=== PATIENT | female | born 1945 | race Caucasian/White ===

== ENCOUNTER 2022-08-03 12:34 | Outpatient (CLI) | payer MEDICARE, BC, SELFPAY | END 2022-08-03 12:35 | disposition home or self-care (01) | LOC: FRMREF 08-17 08:59 | PROVIDERS: PCP Physician Assistant Medical; Visit Provider Physician Assistant Medical | DX: R30.0 Dysuria (principal); N39.0 Urinary tract infection, site not specified | CPT/HCPCS: 87086; 87186 ==

== ENCOUNTER 2022-08-06 13:14 | Outpatient (CLI) | payer MEDICARE, BC, SELFPAY ==
[2022-08-06 14:17] LABS: Chloride* 103 mmol/L (96-114); Potassium* 4.4 mmol/L (3.6-5.1); Sodium* 139 mmol/L (135-149)
[2022-08-06 14:19] LABS: Carbon Dioxide* 30 mmol/L (20-32); Cholesterol* 169 mg/dL (90-199); Creatinine* 0.8 mg/dL (0.5-1.5); Estimated Glomerular Filt Rate 76 ml/min
[2022-08-06 14:20] LABS: Alanine Aminotransferase* 19 U/L (4-35); Alkaline Phosphatase* 68 U/L (40-150); Aspartate Amino Transferase* 29 U/L (12-35); Bilirubin Total* 0.8 mg/dL (0.1-1.5); Blood Urea Nitrogen* 18 mg/dL (7-30); Calcium* 9.2 mg/dL (8.4-10.6); Glucose* 118 mg/dL (60-115); Total Protein* 6.8 g/dL (6.0-8.3); Triglycerides* 137 mg/dL (40-149)
[2022-08-06 14:21] LABS: HDL Cholesterol* 45 mg/dL (>=50); LDL Cholesterol Calculated 97 mg/dL (<100)
== END 2022-08-06 13:15 | disposition home or self-care (01) ==
PROVIDERS: PCP Physician Assistant Medical; Visit Provider Physician Assistant Medical
DX: E78.5 Hyperlipidemia, unspecified (principal)
CPT/HCPCS: 80053; 80061

== ENCOUNTER 2022-08-22 13:20 | Outpatient (CLI) | payer MEDICARE, BC, SELFPAY ==
--- NOTE | 2022-08-22 13:30 | CRLHL7_ITS ---
For Patients: As a result of the Century Cures Act, medical imaging exams and procedure reports are released immediately into your electronic medical record. You may view this report before your referring provider. If you have questions, please contact your health care provider. DXA BONE MINERAL DENSITY STUDY Reason for exam: Screening. Current height (in): 65.5 Weight (lb): 150.0 Menopause age: 50 Ethnicity: White 1. Have you had a previous hip or vertebral fracture? No. 2. Have you had any fractures during your adult life which did not result from significant trauma (e.g., auto accident)? Yes. 3. Did either of your parents have a hip fracture? No. 4. Do you smoke? No. 5. Have you ever taken Glucocorticoids? No. 6. Do you have rheumatoid arthritis? No. 7. Do you have secondary osteoporosis? No. 8. Do you drink 3 or more alcoholic drinks per day? No. 9. Are you being treated for osteoporosis? Yes. 10. Have you ever taken any of the following medications: Actonel, Evista, Fosamax, Miacalcin, Reclast, Boniva, Forteo, HRT (i.e. estrogen/hormone therapy), Protelos, Prolia, Vitamin D, Calcium, other ??? please specify. ANSWER: Yes, Fosamax, Vitamin D, calcium. 11. Do you have any of the following medical conditions: Anorexia or bulimia, asthma or emphysema, end stage renal disease, hyperparathyroidism, any seizure disorders, cancer, inflammatory bowel diseases, hysterectomy, other ??? please specify. ANSWER: Yes, Hysterectomy. 12. What was your maximum height (inches)? Not provided. 13. Do you perform weight bearing exercise regularly? No. 14. Do you regularly consume dairy products? No. 15. Do you drink caffeinated beverages? Yes. 16. At what age did your period start? 16 17. Are you premenopausal? No. 18. How many full term pregnancies have you had? 2. 19. Have you ever missed your period for more than 6 months in a row (not including or menopause)? No. TECHNIQUE: Bone mineral density study was performed using the [employer]. FINDINGS: The results of the study expressed as bone mineral density (BMD) are as follows: Lumbar spine L1to L4: BMD: 0.951 g/cm2. T-score: -0.9. Z-score: 1.6. Neck Left: BMD: 0.594 g/cm2. T-score: -2.3. Z-score: -0.1. Right: BMD: 0.617 g/cm2. T-score: -2.1. Z-score: 0.1. Total Left: BMD: 0.890 g/cm2. T-score: -0.4. Z-score: 1.5. Right: BMD: 0.867 g/cm2. T-score: -0.6. Z-score: 1.3. IMPRESSION: Osteopenia. *Comparison exams done prior to 04/2020 were performed on different unit, [employer]. COMPARISON: Compared with scan of 08/04/2020, the bone mineral density has increased by 0.3 percent at the spine and decreased by 1.1 percent at the hip. Ana Banerjee M.D. Diagnostic/Breast Radiologist [email or web address] TKP/alirio PT/Dictated by: Ana Banerjee MD @ 08/23/2022 8:19:00 AM (Electronically Signed)
== END 2022-08-22 13:21 | disposition home or self-care (01) ==
LOC: RAD 13:21
PROVIDERS: PCP Physician Assistant Medical; Visit Provider Physician Assistant Medical
DX: Z13.820 Encounter for screening for osteoporosis (principal); M85.89 Other specified disorders of bone density and structure, multiple sites; Z78.0 Asymptomatic menopausal state
CPT/HCPCS: 77080

== ENCOUNTER 2022-08-31 07:27 | Outpatient (CLI) | payer MEDICARE, BC, SELFPAY ==
--- NOTE | 2022-08-31 07:45 | CRLHL7_ITS ---
For Patients: As a result of the Century Cures Act, medical imaging exams and procedure reports are released immediately into your electronic medical record. You may view this report before your referring provider. If you have questions, please contact your health care provider. BILATERAL SCREENING MAMMOGRAM WITH COMPUTER-AIDED DETECTION AND TOMOSYNTHESIS TECHNIQUE: CC and MLO views were obtained. These mammographic images have been obtained using full-field digital technique. These mammographic images were interpreted with the benefit of computer-aided detection. Breast Tomosynthesis was used in this interpretation. COMPARISON FILM: 08/17/21, 08/04/20, 08/04/19. FINDINGS: There are scattered areas of fibroglandular density IMPRESSION: There is no radiographic evidence for malignancy. ASSESSMENT: BI-RADS Category 1: Negative RECOMMENDATION: Routine screening mammogram in 1 year. A lay language report of this examination will be provided to the patient. Ziyad Ureña M.D. Diagnostic Radiologist [email or web address] AMINATA/Dictated by: Ziyad Ureña MD @ 08/31/2022 10:59:00 AM (Electronically Signed)
== END 2022-08-31 07:28 | disposition home or self-care (01) ==
LOC: MAMMO 07:29
PROVIDERS: PCP Physician Assistant Medical; Visit Provider Physician Assistant Medical
DX: Z12.31 Encounter for screening mammogram for malignant neoplasm of breast (principal)
CPT/HCPCS: 77063; 77067

== ENCOUNTER 2022-11-29 08:55 | Outpatient (CLI) | payer MEDICARE, BC, SELFPAY | END 2022-11-29 08:56 | disposition home or self-care (01) | LOC: FRMREF 12-05 14:07 | PROVIDERS: PCP Physician Assistant Medical; Visit Provider Physician Assistant Medical | DX: R82.998 Other abnormal findings in urine (principal) | CPT/HCPCS: 87086; 87186 ==

== ENCOUNTER 2023-08-07 08:32 | Outpatient (CLI) | payer MEDICARE, BC, SELFPAY | END 2023-08-07 08:33 | disposition home or self-care (01) | LOC: NFLDREF 08-09 08:58 | PROVIDERS: PCP Physician Assistant Medical; Referring Provider Physician Assistant Medical; Visit Provider Physician Assistant Medical | DX: Z00.00 Encounter for general adult medical examination without abnormal findings (principal); F41.9 Anxiety disorder, unspecified; I10 Essential (primary) hypertension; R20.0 Anesthesia of skin; E53.8 Deficiency of other specified B group vitamins; R53.83 Other fatigue; Z13.21 Encounter for screening for nutritional disorder; R42 Dizziness and giddiness; G25.81 Restless legs syndrome; M85.80 Other specified disorders of bone density and structure, unspecified site; E78.2 Mixed hyperlipidemia | CPT/HCPCS: 80053; 80061; 82306; 82607; 84443 ==

== ENCOUNTER 2023-09-04 14:24 | Outpatient (CLI) | payer MEDICARE, BC, SELFPAY ==
--- NOTE | 2023-09-04 14:40 | CRLHL7_ITS ---
For Patients: As a result of the Cures Act, medical imaging exams and procedure reports are released immediately into your electronic medical record. You may view this report before your referring provider. If you have questions, please contact your health care provider. BILATERAL SCREENING MAMMOGRAM WITH COMPUTER-AIDED DETECTION AND TOMOSYNTHESIS TECHNIQUE: CC and MLO views were obtained. These mammographic images have been obtained using full-field digital technique. These mammographic images were interpreted with the benefit of computer-aided detection. Breast tomosynthesis was used in this interpretation. COMPARISON FILM: 08/31/22, 08/17/21, 08/04/20. FINDINGS: The breasts are heterogeneously dense, which may obscure small masses. IMPRESSION: There is no radiographic evidence for malignancy. ASSESSMENT: BI-RADS Category 1: Negative RECOMMENDATION: Routine screening mammogram in 1 year. A lay language report of this examination will be provided to the patient. ASHELY RIVERA M.D. Diagnostic/Nuclear Medicine Radiologist [email or web address] Transcribed: 1:[address]/Dictated by: Ashely Rivera MD @ 09/06/2023 10:25:00 AM (Electronically Signed)
== END 2023-09-04 14:25 | disposition home or self-care (01) ==
LOC: MAMMO 14:25
PROVIDERS: PCP Physician Assistant Medical; Visit Provider Physician Assistant Medical
DX: Z12.31 Encounter for screening mammogram for malignant neoplasm of breast (principal); R92.2 Inconclusive mammogram
CPT/HCPCS: 77063; 77067

== ENCOUNTER 2024-01-27 10:15 | Outpatient (CLI) | payer MEDICARE, BC, SELFPAY | END 2024-01-27 10:16 | disposition home or self-care (01) | PROVIDERS: PCP Physician Assistant Medical; Visit Provider Family Medicine | DX: R10.84 Generalized abdominal pain (principal) | CPT/HCPCS: 80053; 83690; 87086 ==

== ENCOUNTER 2024-05-26 10:15 | Outpatient (RCR) | payer MEDICARE, BC, SELFPAY ==
--- NOTE | 2024-04-08 16:28 | PT.OPE ---
[facility] Eval PT [facility] Outpatient Eval Start: 04/07/24 14:24 Freq: Status: Active Protocol: Document 04/08/24 09:15 LSL (Rec: 04/08/24 10:47 LSL [id number]) E-signed By Romina Sheth PT Physical Therapy Outpatient Evaluation Insurance Information Recert Due Date 07/07/24 Insurance Name Medicare B Medical Diagnosis R shoulder pain, cervicalgia Treating Diagnosis pain, impaired ROM, muscle tension, weakness Referring MD Herron Subjective Subjective Pt. reports her neck gets stiff mostly on the R side but sometimes on the L and it goes way up high to the bump on my skull. My shoulder hurts intermittently. Pt. reports she gets a quick, sharp pain in her lateral shoulder if she reaches into abduction quickly. It goes away as quickly as it came. I can't lay on it. She is normally a side sleeper. Can normally wake up with it and also notice it when I am watching TV. TV sits over to the L slightly from her chair. History of R TMJ problems 4-5 months and does self prescribed exercises she found on the internet consisting of opening, protrusion and tongue in cheek laterally B. Has had disembarkment syndrome for 20-30 years since after a cruise. Have had a lot of treatment without success. Denies headaches and radicular symptoms. Pain Comments 0/10 best, 5/10 worst Date of Last Physician Visit 03/31/24 Current Work Status Retired Preferred Name Denis Precautions Treatment Precautions/Contraindications maldisembarkment syndrome, L knee OA Weight Bearing Status Full Weight Bearing Therapy Limitations/Systems Review Not Limited Objective Range of Motion AROM Cervical flexion WNL, extension 25% with deviation to R with difficulty due to dizziness, B LF 20% with pulling on R with LLF, L rotation 25% with pain, R rotation 40% Shoulder B symmetrical Flexion 132 Abduction 108 IR (HBB) T10 ER 101 PROM flexion 155, ER 80, IR WNL, L subscap tighter than R Cervical - R rotation upper cervical feels tighter but both go to 50%, lower cervical rotation R 75%, L rotation 40 % with pain in L lower cervical, R LF 50% with pull L , L LF 50% with limited change in cervical segmental motion Strength R elbow and shoulder 5/5 with exception of ER 3+/5 and supraspinatus 4+/5 and all were 5/5 on L side Cervical 5/5 Palpation B scalenes tender, R tight, R UT tight, R infraspinatus tight, R deltoid insertion tender, B suboccipital tender R>L and R much tighter, B subscap tender and R tight Posture dowagers hump, B protracted scapula Other/Pertinent Objective Joint Play some upper cervical and CT junction stiffness Functional Test Performed & Score + impingement Assessment Assessment/Impression Pt. is a 78 y/o female who presents with upper cervical joint and tissue stiffness and additionally RC dysfunction where she exhibits some weakness and this is causing upper trap and LS to overwork increasing her cervical tension. She will benefit from treatment to increase her strength, ROM and decrease her tissue tension. Treatment will consist of therex, NM re- ed, manual therapy and pt. education. Primary Functional Limitations reaching, turning head Plan of Care Rehabilitation Potential Excellent Physical Therapy Goals SHORT TERM GOALS: (3 weeks) 1. Pt. to report decrease in tension by 50%. 2. Pt. able to reach laterally and into ER slowly with pain less than 2/10. 3. Pt. able to turn her head 50%. HALFWAY GOALS: (6 weeks) 1. Pt. to have 5/5 RC strength to decrease tension in her R shoulder/neck. 2. Pt. able to reach with pain less than 2/10. 3. Pt. to report decreased tension to less than 2/10. Coordination/Communication With Referral Source Treatment Plan/Direct Interventions Joint Mobilization,Manual Therapy,Neuromuscular Re-ed, Self-Care/Home Management, Therapeutic Exercises Frequency/Duration 2x/week 4 weeks Patient Will Be Discharged From Therapy Completion of LTG(s),Skills Plateau,Independent w/HEP, Independently Progressing Evaluation Billing Untimed Code Treatment Minutes 40 Complexity Moderate Certification Information Initial Certification Date 04/08/24 Ending Certification Date 07/07/24 Provider Signature Shows Agreement With POC & Medical Necessity Physician Signature & Date Requested Please Sign/Date Here Physician Comment/Change : Physician NPI Number #
== END 2024-08-25 10:27 | disposition home or self-care (01) ==
PROVIDERS: PCP Physician Assistant Medical; Visit Provider Physician Assistant Medical
DX: M54.2 Cervicalgia (principal); M25.511 Pain in right shoulder; R53.1 Weakness; M62.9 Disorder of muscle, unspecified; Z51.89 Encounter for other specified aftercare
CPT/HCPCS: 97110; 97140; 97162

== ENCOUNTER 2024-06-16 15:19 | Outpatient (CLI) | payer MEDICARE, BC, SELFPAY | END 2024-06-16 15:20 | disposition home or self-care (01) | LOC: NFLDREF 06-17 11:30 | PROVIDERS: PCP Physician Assistant Medical; Referring Provider Physician Assistant Medical; Visit Provider Physician Assistant Medical | DX: R82.90 Unspecified abnormal findings in urine (principal); H61.23 Impacted cerumen, bilateral | CPT/HCPCS: 87086; 87186 ==

== ENCOUNTER 2024-07-13 08:35 | Outpatient (CLI) | payer MEDICARE, BC, SELFPAY | END 2024-07-13 08:36 | disposition home or self-care (01) | LOC: NFLDREF 07-17 00:35 | PROVIDERS: PCP Physician Assistant Medical; Referring Provider Physician Assistant Medical; Visit Provider Physician Assistant Medical | DX: E78.2 Mixed hyperlipidemia (principal); N39.0 Urinary tract infection, site not specified; R73.9 Hyperglycemia, unspecified; E78.5 Hyperlipidemia, unspecified | CPT/HCPCS: 80053; 80061; 87086; 87186 ==

== ENCOUNTER 2024-08-12 08:51 | Outpatient (CLI) | payer MEDICARE, BC, SELFPAY | END 2024-08-12 08:52 | disposition home or self-care (01) | LOC: NFLDREF 08-13 11:38 | PROVIDERS: PCP Physician Assistant Medical; Referring Provider Physician Assistant Medical; Visit Provider Physician Assistant Medical | DX: M79.672 Pain in left foot (principal); I10 Essential (primary) hypertension; N39.0 Urinary tract infection, site not specified; R42 Dizziness and giddiness | CPT/HCPCS: 87086; 87186 ==

== ENCOUNTER 2024-08-24 15:10 | Outpatient (CLI) | payer MEDICARE, BC, SELFPAY ==
--- NOTE | 2024-08-24 15:30 | CRLHL7_ITS ---
For Patients: As a result of the Century Cures Act, medical imaging exams and procedure reports are released immediately into your electronic medical record. You may view this report before your referring provider. If you have questions, please contact your health care provider. INDICATION: Visual disturbance TECHNIQUE: Noncontrast Sagittal T1,Axial FSE T2, Flair, DWI images submitted. No comparisons. FINDINGS: Mild cerebral atrophy. The ventricles, sulci and gyri are of normal size, shape and contour for age and degree of atrophy. Midline structures are centrally located. No convincing evidence of suspicious intra- or extra-axial fluid collections. Mild patchy regions of increased T2 signal within the periventricular and subcortical white matter of both cerebral hemispheres. No regions of restricted diffusion. Globes bilaterally are within normal limits. IMPRESSION: 1. No radiographic evidence of acute intracranial abnormalities. 2. Mild cerebral atrophy. 3. Mild supratentorial white matter changes that are non-specific, but statistically most likely related to chronic small vessel ischemic disease. Dictated by Justin Benz MD @ 08/24/2024 7:10:14 PM (Electronically Signed)
== END 2024-08-24 15:11 | disposition home or self-care (01) ==
LOC: MRI 15:11
PROVIDERS: PCP Physician Assistant Medical; Visit Provider Physician Assistant Medical
DX: H53.9 Unspecified visual disturbance (principal); G31.9 Degenerative disease of nervous system, unspecified
CPT/HCPCS: 70551

== ENCOUNTER 2024-09-07 09:55 | Outpatient (CLI) | payer MEDICARE, BC, SELFPAY ==
--- NOTE | 2024-09-07 10:15 | CRLHL7_ITS ---
For Patients: As a result of the Century Cures Act, medical imaging exams and procedure reports are released immediately into your electronic medical record. You may view this report before your referring provider. If you have questions, please contact your health care provider. BILATERAL SCREENING MAMMOGRAM WITH COMPUTER-AIDED DETECTION AND TOMOSYNTHESIS TECHNIQUE: CC and MLO views were obtained. These mammographic images have been obtained using full-field digital technique. These mammographic images were interpreted with the benefit of computer-aided detection. Breast Tomosynthesis was used in this interpretation. COMPARISON FILM: 09/04/23, 08/31/22, 08/17/21. FINDINGS: The breasts are heterogeneously dense, which may obscure small masses. IMPRESSION: There is no radiographic evidence for malignancy. ASSESSMENT: BI-RADS Category 2: Benign RECOMMENDATION: Routine screening mammogram in 1 year. A lay language report of this examination will be provided to the patient. Ziyad Ureña M.D. Diagnostic Radiologist [email or web address] SP/Dictated by: Ziyad Ureña MD @ 09/10/2024 11:31:00 AM (Electronically Signed)
== END 2024-09-07 09:56 | disposition home or self-care (01) ==
LOC: MAMMO 09:55
PROVIDERS: PCP Physician Assistant Medical; Visit Provider Physician Assistant Medical
DX: Z12.31 Encounter for screening mammogram for malignant neoplasm of breast (principal); R92.333 Mammographic heterogeneous density, bilateral breasts
CPT/HCPCS: 77063; 77067

== ENCOUNTER 2024-09-09 12:47 | Outpatient (CLI) | payer MEDICARE, BC, SELFPAY ==
--- NOTE | 2024-09-09 13:00 | CRLHL7_ITS ---
For Patients: As a result of the Century Cures Act, medical imaging exams and procedure reports are released immediately into your electronic medical record. You may view this report before your referring provider. If you have questions, please contact your health care provider. DXA BONE MINERAL DENSITY STUDY Reason for exam: Age-related osteoporosis. Current height (in): 65.5. Weight (lb): 150. Menopause age: 50. Ethnicity: White. 1. Have you had a previous hip or vertebral fracture? No. 2. Have you had any fractures during your adult life which did not result from significant trauma (e.g., auto accident)? Yes. 3. Did either of your parents have a hip fracture? No. 4. Do you smoke? No. 5. Have you ever taken Glucocorticoids? No. 6. Do you have rheumatoid arthritis? No. 7. Do you have secondary osteoporosis? No. 8. Do you drink 3 or more alcoholic drinks per day? No. 9. Are you being treated for osteoporosis? Yes. 10. Have you ever taken any of the following medications: Actonel, Evista, Fosamax, Miacalcin, Reclast, Boniva, Forteo, HRT (i.e., estrogen/hormone therapy), Protelos, Prolia, Vitamin D, Calcium, other ??? please specify. ANSWER: Yes, Fosamax (i.e., raloxifene), vitamin D, and calcium. 11. Do you have any of the following medical conditions: Anorexia or bulimia, asthma or emphysema, end stage renal disease, hyperparathyroidism, any seizure disorders, cancer, inflammatory bowel diseases, hysterectomy, other ??? please specify. ANSWER: Yes, hysterectomy. 12. What was your maximum height (inches)? 65. 13. Do you perform weight bearing exercise regularly? No. 14. Do you regularly consume dairy products? No. 15. Do you drink caffeinated beverages? Yes. 16. At what age did your period start? 16. 17. Are you premenopausal? No. 18. How many full-term pregnancies have you had? 2. 19. Have you ever missed your period for more than 6 months in a row (not including or menopause)? No. TECHNIQUE: Bone mineral density study was performed using the [employer]. FINDINGS: The results of the study expressed as bone mineral density (BMD) are as follows: Lumbar spine L1 to L4: BMD: 0.878 g/cm2. T-score: -1.5. Z-score: 1.1 Neck Left: BMD: 0.599 g/cm2. T-score: -2.3. Z-score: 0.0 Right: BMD: 0.611 g/cm2. T-score: -2.1. Z-score: 0.1 Total Left: BMD: 0.921 g/cm2. T-score: -0.2. Z-score: 1.8 Right: BMD: 0.922 g/cm2. T-score: -0.2. Z-score: 1.8 IMPRESSION: Osteopenia. *Comparison exams done prior to 04/2020 were performed on different unit, [employer] COMPARISON: Compared with scan of 08/22/2022, the bone mineral density has decreased by 7.6 percent at the spine and increased by 4.9 percent at the hip. Compared with scan of 08/04/2020, the bone mineral density has increased by 0.3 percent at the spine and decreased by 1.1 percent at the hip. Ziyad Ureña M.D. Diagnostic Radiologist [email or web address] NATO/anjelica dejesus/Dictated by: Ziyad Ureña MD @ 09/10/2024 12:22:00 PM (Electronically Signed)
== END 2024-09-09 12:48 | disposition home or self-care (01) ==
LOC: RAD 12:48
PROVIDERS: PCP Physician Assistant Medical; Visit Provider Physician Assistant Medical
DX: M81.0 Age-related osteoporosis without current pathological fracture (principal); M85.89 Other specified disorders of bone density and structure, multiple sites
CPT/HCPCS: 77080

== ENCOUNTER 2024-09-17 08:25 | Outpatient (CLI) | payer MEDICARE, BC, SELFPAY | END 2024-09-17 08:26 | disposition home or self-care (01) | LOC: NFLDREF 09-21 10:45 | PROVIDERS: PCP Physician Assistant Medical; Referring Provider Physician Assistant Medical; Visit Provider Physician Assistant Medical | DX: N39.0 Urinary tract infection, site not specified (principal) | CPT/HCPCS: 87086 ==

== ENCOUNTER 2025-04-28 06:35 | Day surgery (SDC) | payer MEDICARE, BC, SELFPAY ==
[2025-04-28] VITALS (8 sets, daily range): BP systolic 155–191; BP diastolic 69–89; PULSE 69–77; RESP 16–20; TEMP 36.4; O2SAT 95–97; BMI 25.4
[2025-04-28] MEDS: BUPIVACAINE 0.5% 30 ML INJECTION (07:00)
[2025-04-28] MEDS: LIDOCAINE 1%-EPI 1:100,000 20 ML INFILTRATI (07:00)
--- NOTE | 2025-04-28 08:02 | PM.ORPRC ---
Procedure Note Date of procedure: 04/28/25 Procedure: PREOPERATIVE DIAGNOSIS: 1. Right carpal tunnel syndrome POSTOPERATIVE DIAGNOSIS: 1. Right carpal tunnel syndrome PROCEDURE: 1. Right open carpal tunnel release SURGEON: Shaggy Barrientos MD. SECURITY GUARD DISPATCHER: Glenda Ward PA-C ANESTHESIA: Local anesthetic (50:50 mixture of 1% lidocaine with epi and 0.5% marcaine plain) - 8ml total IMPLANTS: None EBL: 2 mL TOURNIQUET: None COMPLICATIONS: None evident INDICATIONS: The patient is a pleasant 79-year-old female who has experienced right hand numbess/tingling affecting the radial 3.5 digits for multiple months. It has progressively gotten worse. Nonoperative management has been tried and failed, and therefore surgery was recommended. DESCRIPTION OF PROCEDURE: Following a thorough discussion of risks, benefits, and alternatives consent was obtained and the operative extremity was marked. The patient was brought to the operating room and placed supine on the operating table. Local anesthesia induction was undertaken in preop holding. No antibiotics were administered as this was planned to be a local case only. Proper time-out was performed identifying proper patient, site, and procedure. The operative extremity was prepped and draped in the appropriate sterile fashion using ChloraPrep. An incision was made in line with the radial border of the ring finger beginning 1 cm distal to the distal wrist crease and progressing for another 2.5cm distal. Caution was taken to stay proximal to Ivy's cardinal line. Sharp incision through the skin, subcutaneous tissue, and palmar fascia was performed. The thenar musculature was bluntly elevated off the transverse carpal ligament. The ligament was directly visualized, and divided sharply with a 15 blade. This was released from its most proximal to the most distal extent. Metzenbaum scissor was also utilized to release the fascia extension proximally. We confirmed complete release of the transverse carpal ligament. Closure was performed with 4-O nylon in interrupted fashion. Soft dressings were applied, and the patient was transferred to the recovery room in stable condition. PLAN: 1. Encourage elevation of the operative extremity. 2. Range of motion of the fingers and hand/wrist as tolerated. 3. Ibuprofen/acetaminophen as needed for pain control. 4. Follow up with PA visit or nurse visit in 12-16 days for wound check and suture removal.
== END 2025-04-28 08:24 | disposition home or self-care (01) ==
LOC: OR 06:36
PROVIDERS: PCP Physician Assistant Medical; Visit Provider Orthopaedic Surgery Sports Medicine
PROC: (CPT 64721; principal; 2025-04-28 07:45)
DX: G56.01 Carpal tunnel syndrome, right upper limb (principal)
CPT/HCPCS: 64721; J0665

== ENCOUNTER 2025-07-17 16:54 | Emergency (ER) | payer MEDICARE, BC, SELFPAY ==
--- OUTSIDE RECORDS SUMMARY | 2009-06-02 14:37 | XMS_ITS | Continuity of Care Document ---
Author Organization [facility] Address [address] [place] [address] Phone Care Team Providers Care Fuel Testing Technician Name Role Phone Aleisha CONKLIN MD, Дмитрий Unavailable Unavailable Procedures Procedure Date Offic/outpt E&m Estab Low-mod 9 Injection Three Or More Groups 09 Offic Cons New/estab Mod 40 Mi 08 Injection Three Or More Groups 08 Advance Directives Directive Yes / No Effective Date File Name No Information Encounters Encounter Description Practice Location Reason(s) For Visit Diagnoses Date Provider Providers Copied on Encounter [facility], [address], [place], [place], [id number], [place] tel:[phone] No Information Gayla Choe. [address], [place], [address], [place]. tel:[phone] Referring Provider: Дмитрий Arevalo, [address] [place], [address]. tel:[phone] Offic/outpt E&m Estab Low-mod [facility], [address], [place], [place], [id number], [place] tel:[phone] [facility] No Information Gayla Choe. [address], [place], [address], [place]. tel:[phone] Referring Provider: Дмитрий Arevalo, [address] [place], [address]. tel:[phone] Offic Cons New/estab Mod 40 Mi Giancarlo, [facility], [address], [place], [place], [id number], tel:[phone] [facility] No Information 8 Aleisha Choe. [address], [place], [address], . tel:[phone] Referring Provider: Дмитрий Arevalo, [address] [place], [address]. tel:[phone] Family History Family Member Type Diagnosis Age At Onset No Information Payers Payer name Insurance type Covered green party ID Authornatividad blackwell(s) Blue Plus BL [id number] Social History Type Description Quantity Date Captured Comments Sex Female Smoking Status No Information Chief Complaint And Reason For Visit No Information Reason For Referral Reason For Referral No Information History Of Present Illness Encounter Date Complaint History Of Prese nt Illness No Information Functional Status Date Functional Assessmen t No Information Instructions Date Instruction Additional Infor mation No Information Assessments Type Assessment Date No Information Patient Care Teams Name Effective Dates (start - stop) Status Members No Information
--- OUTSIDE RECORDS SUMMARY | 2009-06-02 14:37 | XMS_ITS | Continuity of Care Document ---
Author Organization [facility] Mondragon Address [address] [place] [address] Phone Care Team Providers Care Summer School Coordinator Name Role Phone Aleisha CONKLIN MD, Дмиртий Unavailable Unavailable Procedures Procedure Date Offic/outpt E&m Estab Low-mod 9 Injection Three Or More Groups 09 Offic Cons New/estab Mod 40 Mi 08 Injection Three Or More Groups 08 Advance Directives Directive Yes / No Effective Date File Name No Information Encounters Encounter Description Practice Location Reason(s) For Visit Diagnoses Date Provider Providers Copied on Encounter [facility], [address], [place], [place], [id number], [place] tel:[phone] No Information Gayla Choe. [address], [place], [address], [place]. tel:[phone] Referring Provider: Дмитрий Arevalo, [address] [place], [address]. tel:[phone] Offic/outpt E&m Estab Low-mod [facility], [address], [place], [place], [id number], [place] tel:[phone] [facility] No Information Gayla Choe. [address], [place], [address], [place]. tel:[phone] Referring Provider: Дмитрий Arevalo, [address] [place], [address]. tel:[phone] Offic Cons New/estab Mod 40 Mi Giancarlo, [facility], [address], [place], [place], [id number], tel:[phone] [facility] No Information 8 Aleisha Choe. [address], [place], [address], . tel:[phone] Referring Provider: Дмитрий Arevalo, [address] [place], [address]. tel:[phone] Family History Family Member Type Diagnosis Age At Onset No Information Payers Payer name Insurance type Covered libertarian ID Authornatividad blackwell(s) Blue Plus BL [id number] Social History Type Description Quantity Date Captured [...]
--- OUTSIDE RECORDS SUMMARY | 2024-10-12 06:01 | XMS_ITS | Continuity of Care Document ---
Author Organization [facility] Address [address] [address] [place] [address] Phone Care Team Providers Care [employer] Driver Name Role Phone Nii Cedillo CRNA Unavailable Unavailable Allergies, Adverse Reactions, Alerts Substance Reaction Status Criticality No Known Allergies Active No Inform ation Medications Medication Instructions Dosage Effective Dates (start - stop) Status Comments atorvastatin 10 mg tablet take 1 tablet by oral route every day 10 MG - Active famotidine 20 mg tablet take 2 Tablet by oral route every bedtime 40 MG - Active meclizine 25 mg tablet take 1 tablet by oral route every day as needed 25 MG - Active Fosamax 70 mg tablet take 1 tablet by or al route every week in the morning, at least 30 min before first food, beverage, or medication of day 70 MG - Active aspirin 81 mg tablet,delayed release take 1 tablet by oral route every day 81 MG - Active Procedures Procedure Date Colorectal Ca Screen Hi Risk I 24 Colonoscopy Flex; W/remov Les- 21 Level Iv-surg Path Gross/micro 21 Advance Directives Directive Yes / No Effective Date File Name No Information Encounters Encounter Description Practice Location Reason(s) For Visit Diagnoses Date Provider Providers Copied on Encounter [facility], [address] [address], [place], [id number], [place] tel:[phone] Markie [facility] No Information Mamadou Bales. [address] [facility], [place], [id number] , [place]. tel:[phone] Referring Provider: Bradley Brewer MD, [address] [facility] [address], [place], [address] . tel:[phone] [facility], [address] [address], [place], [place], [id number], [place] tel:[phone] [facility] GI Symptoms or Concerns (chief complaint) Diverticulosis of colon without diverticulitisEncou nter for screening for malignant neoplasm of colonPersonal history of colon polyps, unspecifiedDivertic ulosis of large intestine without perforation or abscess without bleeding 4 Daniella Huerta. [address] [facility], [address], [place], [place], [id number] , [place]. tel:[phone] Referring Provider: Referral Self, USE FOR SELF REFERRALS. [facility], [address] [address], [place], [place], [id number], [place] tel:[phone] [facility] No Information 4 Osiel Hylton. [address] [facility], [address], [place], [place], [id number] , [place]. tel:[phone] [facility], [address] [address], [place], [id number], [place] tel:[phone] [facility] GI Symptoms or Concerns (chief complaint) Colorectal polypsDiverticulosi s of colon without diverticulitisInter nal and external hemorrhoids without complicationEncount er for screening for malignant neoplasm of colonBenign neoplasm of ascending colonBenign neoplasm of transverse colonBenign neoplasm of descending colonBenign neoplasm of descending colonBenign neoplasm of transverse colonBenign neoplasm of ascending colon 1 Lucian Mahajan. [address] [facility], [address], [place], [place], [id number] , [place]. [phone] Referring Provider: Rosalee Herron PAC, [address], [place], [address]. tel:[phone] [facility], [address] [address], [place], [id number], tel:[phone] [facility] No Information Haritha Bales. [address] [facility], [facility] [address], [place], [id number] , . tel:[phone] Family History Family Member Type Diagnosis Age At Onset Son Problem (finding) Colon polyps Sister Problem (finding) GERD Sister Problem (finding) gallbladder disease Sister Problem (finding) Thyroid disorder Brother Problem (finding) Thyroid disorder Immunizations Vaccine Date Status Comments Influenza, high-dose, split virus, trivalent, injectable, preservative free administered Note: [facility] bi-direct ional interface ; Source: Other Registry SARS-COV-2 (COVID-19) vaccin e, mRNA, spike protein, LNP, preservative free, 50 mcg/0.5 mL dose administered Note: [facility] bi-direct ional interface ; Source: Other Registry Influenza, high-dose, split virus, quadrivalent, injectable, preservative free administered Note: [facility] bi-direct ional interface ; Source: Other Registry tetanus and diphtheria toxoi ds, adsorbed, preservative free, for adult use (5 Lf of tetanus toxoid and 2 Lf of diphtheria toxoid) administered Note: [facility] bi-direct ional interface ; Source: Other Registry SARS-COV-2 (COVID-19) vaccin e, mRNA, spike protein, LNP, bivalent, preservative free, 30 mcg/0.3 mL dose, be-sucrose formulation administered Note: [facility] bi-direct ional interface ; Source: Other Registry Influenza, high-dose, split virus, quadrivalent, injectable, preservative free administered Note: [facility] bi-direct ional interface ; Source: Other Registry Influenza, recombinant, quadrivalent, injectable, preservative free administered Note: [facility] bi-direct ional interface ; Source: Other Registry Seasonal, quadrivalent, recombinant, injectable influenza vaccine, preservative free administered Note: [facility] bi-direct ional interface ; Source: Other Registry SARS-COV-2 (COVID-19) vaccin e, mRNA, spike protein, LNP, preservative free, 30 mcg/0.3mL dose administered Note: [facility] bi-direct ional interface ; Source: Other Registry SARS-COV-2 (COVID-19) vaccin e, mRNA, spike protein, LNP, preservative free, 30 mcg/0.3mL dose administered Note: [facility] bi-direct ional interface ; Source: Other Registry SARS-COV-2 (COVID-19) vaccin e, mRNA, spike protein, LNP, preservative free, 30 mcg/0.3mL dose administered Note: [facility] bi-direct ional interface ; Source: Other Registry Influenza, high-dose, split virus, quadrivalent, injectable, preservative free administered Note: [facility] bi-direct ional interface ; Source: Other Registry influenza, high-dose seasona l, quadrivalent, .7mL dose, preservative free administered Note: [facility] bi-direct ional interface ; Source: Other Registry Afluria Qd [id number] administered Note: [facility] bi-directional interface ; Source: Other Registry zoster vaccine recombinant administered N ote: [facility] bi-directional interface ; Source: Other Registry zoster vaccine recombinant administered N ote: [facility] bi-directional interface ; Source: Other Registry Influenza, high-dose, split virus, trivalent, injectable, preservative free administered Note: [facility] bi-direct ional interface ; Source: Other Registry influenza, high dose seasona l, preservative-free administered Note: [facility] bi-direct ional interface ; Source: Other Registry Influenza, high-dose, split virus, trivalent, injectable, preservative free administered Note: [facility] bi-direct ional interface ; Source: Other Registry influenza, high dose seasona l, preservative-free administered Note: [facility] bi-direct ional interface ; Source: Other Registry Influenza, high-dose, split virus, trivalent, injectable, preservative free administered Note: [facility] bi-direct ional interface ; Source: Other Registry influenza, high dose seasona l, preservative-free administered Note: [facility] bi-direct ional interface ; Source: Other Registry Influenza, high-dose, split virus, trivalent, injectable, preservative free administered Note: [facility] bi-direct ional interface ; Source: Other Registry influenza, high dose seasona l, preservative-free administered Note: [facility] bi-direct ional interface ; Source: Other Registry Influenza, split virus, trivalent, injectable, preservative free administered Note: [facility] bi-direct ional interface ; Source: Other Registry Influenza, seasonal, injecta ble, preservative free administered Note: [facility] bi-direct ional interface ; Source: Other Registry tetanus toxoid, reduced diphtheria toxoid, and acellular pertussis vaccine, adsorbed administered Note: [facility] b i-directional interface ; Source: Other Registry zoster vaccine, live administered Note: [facility] bi-directional interface ; Source: Other Registry Influenza, split virus, trivalent, injectable, preservative free administered Note: [facility] bi-direct ional interface ; Source: Other Registry Influenza, seasonal, injecta ble, preservative free administered Note: [facility] bi-direct ional interface ; Source: Other Registry Influenza, split virus, trivalent, injectable, preservative free administered Note: [facility] bi-direct ional interface ; Source: Other Registry Influenza, seasonal, injecta ble, preservative free administered Note: [facility] bi-direct ional interface ; Source: Other Registry Novel [id number], all formulations administered Note: [facility] bi-direct ional interface ; Source: Other Registry Payers Payer name Insurance type Covered libertarian ID Authoriza tion(s) Medicare NGS MB [id number] [facility] Medicare Supplement BL [id number] Social History Type Description Quantity Date Captured Comments Sex Female Smoking Status No Information Chief Complaint And Reason For Visit No Information Reason For Referral Reason For Referral No Information History Of Present Illness Encounter Date Complaint History Of Prese nt Illness GI Symptoms or Concerns GI Symptoms or Concerns Functional Status Date Functional Assessmen t No Information Instructions Date Instruction Additional Infor mation Diverticulosis/Diverticulitis Re lated to Diverticulosis of colon without diverticulitis Colon Cancer Prevention Related to Diverticulosis of colon without diverticulitis High Fiber Diet Related to Diver ticulosis of colon without diverticulitis Colon Polyps Related to Color ectal polyps Colon Cancer Prevention Related to Colorectal polyps Assessments Type Assessment Date No Information Patient Care Teams Name Effective Dates (start - stop) Status Members No Information
--- OUTSIDE RECORDS SUMMARY | 2024-10-12 06:01 | XMS_ITS | Continuity of Care Document ---
Author Organization [facility] Address [address] [address] [place] [address] Phone Care Team Providers Care [employer] Inspector Name Role Phone Nii Cedillo CRNA Unavailable [...] Diagnoses Date Provider Providers Copied on Encounter [facility], [address] [address], [place], [id number], [place] tel:[phone] Markie [facility] No Information Mamadou Bales. [address] [facility], [address], [place], [id number] , [place]. tel:[phone] Referring Provider: Bradley Brewer MD, [address] [facility] [address], [place], [address] . tel:[phone] [facility], [address] [address], [place], [address], [place] tel:[phone] [facility] GI Symptoms or Concerns (chief complaint) Diverticulosis of colon without diverticulitisEncou nter for screening for malignant neoplasm of colonPersonal history of colon polyps, unspecifiedDivertic ulosis of large intestine without perforation or abscess without bleeding 4 Daniella Huerta. [address] [facility], [address], [place], [id number] , [place]. tel:[phone] Referring Provider: Referral Self, USE FOR SELF REFERRALS. [facility], [address] [address], [place], [address], [place] tel:[phone] [facility] No Information 4 Osiel Hylton. [address] [facility], [address], [place], [place], [id number] , [place]. tel:[phone] [facility] [employer] [facility] [facility], [address] [address], [place], [address], [place] tel:[phone] [facility] GI Symptoms or Concerns (chief complaint) Colorectal polypsDiverticulosi s of colon without diverticulitisInter nal and external hemorrhoids without complicationEncount er for screening for malignant neoplasm of colonBenign neoplasm of ascending colonBenign neoplasm of transverse colonBenign neoplasm of descending colonBenign neoplasm of descending colonBenign neoplasm of transverse colonBenign neoplasm of ascending colon 1 Lucian Mahajan. [address] [facility], [address], [place], [place], [address] , [place]. [phone] Referring Provider: Rosalee Herron PAC, [address], [place], [address]. tel:[phone] [facility], [address] [address], [place], [place], [address], tel:[phone] [facility] No Information Haritha Bales. [address] [facility], [facility] [address], [place], [id number] , . tel:[phone] Family History Family Member Type Diagnosis Age [...] interface ; Source: Other Registry Afluria Qd [id number] administered Note: [facility] bi-directional interface ; [...] and acellular pertussis vaccine, adsorbed administered Note: [facility] b i-directional interface ; Source: Other Registry [...] ional interface ; Source: Other Registry Novel [id number], all formulations administered Note: [facility] bi-direct ional interface ; Source: Other Registry Payers Payer name Insurance type Covered constitution party ID Authoriza tion(s) Medicare NGS MB [id number] [facility] Medicare Supplement BL [id number] Social History Type Description Quantity Date Captured [...]
--- OUTSIDE RECORDS SUMMARY | 2025-07-17 16:56 | XMS_ITS | Clinical Summary ---
Author Organization [facility] Address [address] [place] [address] Care Team Providers Care [employer] Associate Name Role Phone Unavailable Primary Care Provider Unavailabl e Source Comments Patient records contain information from all sites at [facility]. For routine questions regarding patient records, call [phone] during business hours, M-F 8:00 AM - 5:00 PM Central Time. Record requests for emergency care only can be directed to [phone] at any time.[facility] Allergies Active Allergy Reactions Criticality Noted Date Comments Pollen Extracts 08/14/2021 Medications raNITIdine (ZANTAC) 150 mg capsule Take 150 mg by mouth 2 (two) times a day. Active atorvastatin (LIPITOR) 20 mg tablet Take 20 mg by mouth daily. Active calcium carbonate-vitami n D3 1,500 mg (600 mg calcium)-400 unit per tablet Take 1 tablet by mouth 2 (two) times a day with meals. Active cholecalciferol (cholecalciferol ) 1,000 Unit tablet Take 1,000 Units by mouth daily. Active alendronate (FOSAMAX) 70 mg tablet Take by mouth once a week. 07/28/[address] tablet Take 81 mg by mouth daily. Active atorvastatin (LIPITOR) 10 mg tablet Take by mouth daily. 08/01/2018 Active meclizine (ANTIVERT) 25 mg tablet Take 25 mg by mouth 2 (two) times a day. 09/21/2016 Active oxybutynin (DITROPAN-XL) 5 mg 24 hr tablet Take by mouth daily. 08/01/2018 Active famotidine (PEPCID) 20 mg tablet Take 20 mg by mouth daily. 07/25/2020 Active ALPRAZolam (XANAX) 0.5 mg tablet Take 0.5 mg by mouth as needed. 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 Gender Identity Not on file Sexual Orientation Not on file Occupation Industry Job Start Date Job End Date Not on file Not on file Not on file Not on file Plan of Treatment Health Maintenance Due Date Last Done Comments Hepatitis C Screening 1945 Pneumococcal vaccine (50+ years) (1 of 1 - PCV) 1995 RSV vaccine - (32-36 weeks) or 60+ years (1 - 1-dose 75+ series) 2020 COVID-19 Vaccine ( - 2023- season) 2024 10/11/2023, 11/01/2022, 08/22/2021, Additional history exists Depression Screening (Annual PHQ-2) 11/18/2024 Fall Risk Screen (Annual) 11/18/2024 Influenza Vaccine (#1) 2025 , 09/12/2022, 09/18/2021, Additional history exists DTaP,Tdap,and Td Vaccines (3 - Td or Tdap) 07/08/2033 07/08/2023, 08/26/2013 Zoster Vaccines Completed 05/11/2019, 02/17, 10/29/2012 IPV Vaccines Aged Out No longer eligi ble based on patient's age to complete this topic Insurance MEDICARE [facility]
--- OUTSIDE RECORDS SUMMARY | 2025-07-17 16:56 | XMS_ITS | Clinical Summary ---
Author Organization [facility] Address [address], [place] [address] Care Team Providers Care Glove Brusher Name Role Phone [place] Jeff RIDGE Primary Care Provider [phone] Source Comments You are receiving this document as you are listed as the primary care provider,follow-up provider, or the patient has been referred to you for consultation.This is in compliance with the Medicare and[facility] EHR Incentive Program,which states Providers who transition their patient to another setting of careor provider of care or refers their patient to another provider of care shouldprovide summary care record for each transition of care or referral. Ctrip Allergies No known active allergies Medications meclizine (ANTIVERT) 25 MG tabletIndicatio ns:MARGARETTE CORADO SatApr 30, 2016 8:55 AM Received from: External Pharmacy Indications: PN: MARGARETTE CORADO SatApr 30, 2016 8:55 AM Received from: External Pharmacy 04/23/2016 Active ranitidine (ZANTAC) 150 MG tabletIndicatio ns:MARGARETTE CORADO SatApr 30, 2016 8:55 AM Received from: External Pharmacy Indications: PN: MARGARETTE CORADO SatApr 30, 2016 8:55 AM Received from: External Pharmacy 04/22/2016 Active atorvastatin (LIPITOR) 10 MG tabletIndicatio ns:MARGARETTE CORADO SatApr 30, 2016 8:55 AM Received from: External Pharmacy Indications: PN: MARGARETTE CORADO SatApr 30, 2016 8:55 AM Received from: External Pharmacy 04/09/2016 Active meloxicam (MOBIC) 7.5 MG tabletIndicatio ns:MARGARETTE CORADO SatApr 30, 2016 8:55 AM Received from: External Pharmacy Indications: PN: MARGARETTE CORADO SatApr 30, 2016 8:55 AM Received from: External Pharmacy 03/28/2016 Active ALPRAZolam (XANAX) 0.5 MG tabletIndicatio ns:MARGARETTE CORADO SatApr 30, 2016 8:55 AM Received from: External Pharmacy Indications: PN: MARGARETTE CORADO SatApr 30, 2016 8:55 AM Received from: External Pharmacy 09/20/2015 Active ammonium lactate (AMLACTIN) 12 % creamIndication s:MARGARETTE CORADO SatApr 30, 2016 8:55 AM Received from: External Pharmacy Indications: PN: MARGARETTE CORADO SatApr 30, 2016 8:55 AM Received from: External Pharmacy 0 05/03/2015 Active hydrocortisone 2.5 % creamIndication s:MARGARETTE CORADO SatApr 30, 2016 8:55 AM Received from: External Pharmacy Indications: PN: MARGARETTE CORADO SatApr 30, 2016 8:55 AM Received from: External Pharmacy 2 05/03/2015 Active amLODIPine (NORVASC) 2.5 MG tablet Take 1 Tablet (2.5 mg) by mouth daily at bedtime. 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/30/2016 Family History Medical History Relation Name Comments Cataract Sister Diabetes Sister Amblyopia/Strabismus Negative Family History Glaucoma Negative Family History Macular Degeneration Negative Family History Retinal Detachment Negative Family History Relation Name Status Comments Sister Social History Tobacco Use Types Packs/Day Years Used Date Smoking Tobacco: Never Smokeless Tobacco: Never Comments Unknown Sex and Gender Information Value Date Recorded Sex Assigned at Not on file Legal Sex Female 10:23 AM CDT Gender Identity Not on file Sexual Orientation Not on file Last Filed Vital Signs Vital Sign Reading Time Taken Comments Blood Pressure 147/78 04/30/2016 8:59 AM CDT Pulse 80 04/30/2016 8:59 AM CDT Temperature - - Respiratory Rate - - Oxygen Saturation - - Inhaled Oxygen Concentration - - Weight 67.6 kg (149 lb) 04/30/2016 8:59 AM CDT Height 165.1 cm (5' 5) 04/30/2016 8:59 AM CDT Body Mass Index 24.79 04/30/2016 8:59 AM CDT Plan of Treatment Health Maintenance Due Date Last Done Comments Hep C Screening (Preventive Services) 1945 Medicare Annual Wellness Visit 1945 DTaP/Tdap/Td Vaccine (1 - Tdap) 1964 Pneumococcal Vaccine 50+ Yrs (1 of 1 - PCV) 1995 Zoster/Shingles Vaccine (1 of 2) 1995 Dexa 2010 RSV Vaccine (1 - 1-dose 75+ series) 2020 COVID-19 Vaccine ( - 2023-2 5 season) 2024 Influenza Vaccine (#1) 2025 HepA Vaccine Aged Out No longer eligi ble based on patient's age to complete this topic HepB Vaccine Aged Out No longer eligi ble based on patient's age to complete this topic Hib Vaccine Aged Out No longer eligi ble based on patient's age to complete this topic MCV4 Vaccine Aged Out No longer eligi ble based on patient's age to complete this topic Meningococcal B Vaccine Aged Out No l onger eligible based on patient's age to complete this topic Insurance MEDICARE [facility] MEDICARE SUPPLEMENT [place] [id number] [facility] [place] [id number] Care Teams Glove Brusher Relationship Specialty Start Date End Date TomerFebruary Mihir, RID[place] [address] [place] [id number] PCP - General 03/23/16
--- OUTSIDE RECORDS SUMMARY | 2025-07-17 16:56 | XMS_ITS | Clinical Summary ---
Author Organization [facility] Address [address] [place], [place] [address] [address] Care Team Providers Care Interventional Physiatrist Name Role Phone GopalToddfamilia SABILLON Primary Care Provider [phone] Toni Pang MD Unavailable [phone] Allergies No known active allergies Medications atorvastatin (LIPITOR) 10 MG tabletIndications :Pain of left lower extremity,Decreas ed pedal pulses,Varicose veins of bilateral lower extremities with other complications Take 10 mg by mouth daily 7 Active meclizine (ANTIVERT) 25 MG tabletIndications :Pain of left lower extremity,Decreas ed pedal pulses,Varicose veins of bilateral lower extremities with other complications Take 25 mg by mouth 2 times daily 6 Active meloxicam (MOBIC) 7.5 MG tabletIndications :Pain of left lower extremity,Decreas ed pedal pulses,Varicose veins of bilateral lower extremities with other complications Take 7.5 mg by mouth as needed 7 Active aspirin 81 MG tabletIndications :Pain of left lower extremity,Decreas ed pedal pulses,Varicose veins of bilateral lower extremities with other complications Take 81 mg by mouth daily Active Calcium Carbonate (CALCIUM 600 PO)Indications:Pa in of left lower extremity,Decreas ed pedal pulses,Varicose veins of bilateral lower extremities with other complications Take 600 mg by mouth 2 times daily Active VITAMIN D, CHOLECALCIFEROL, POIndications:Seun n of left lower extremity,Decreas ed pedal pulses,Varicose veins of bilateral lower extremities with other complications Take by mouth every other day Active alendronate (FOSAMAX) 70 MG tablet Take 70 mg by mouth every 7 days Active [place]-3 Fatty Acids (FISH OIL ULTRA) 1400 MG CAPS Active ALPRAZolam (XANAX) 0.5 MG tablet Take 0.5 mg by mouth 2 times daily as needed for anxiety Active senna-docusate (SENOKOT-S/EUGENIA LACE) 8.6-50 MG tablet Take 1-2 tablets by mouth daily Active phenazopyridine (PYRIDIUM) 200 MG tabletIndications :Post-operative state Take 1 tablet (200 mg) by mouth 3 times daily as needed for irritation 9 tablet 1 Active Additional Information Patient not taking.Reported on 06/18/2024 famotidine (PEPCID) 20 MG tablet Take 20 mg by mouth 2 times daily Active calcium carbonate-vitamin D (CALTRATE) 600-10 MG-MCG per tablet Take 1 tablet by mouth 2 times daily Active amLODIPine (NORVASC) 2.5 MG tablet Take 2.5 mg by mouth daily. 4 Active Active Problems Problem Noted Date Diagnosed Date Pain of left lower extremity distal portion 06/2017 Decreased pedal pulses 06/25/2017 Varicose veins of bilateral lower extremities with other complications 06/25/2017 Family History Medical History Relation Comments Cancer Brother Coronary Artery Disease Brother Diabetes Sister Relation Status Comments Brother Sister Social History Tobacco Use Types Packs/Day Years Used Date Smoking Tobacco: Never Smokeless Tobacco: Never Tobacco Cessation:Counseling Given: Yes Alcohol Use Standard Drinks/Week Comments Yes 0 (1 standard drink = 0.6 oz pur e alcohol) Adolescent Education Answer Date Record ed Getting School Help Needed Not on file 08/14 Comments No Sex and Gender Information Value Date Recorded Sex Assigned at Not on file 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 Gender Identity Not on file Sexual Orientation Not on file Occupation Industry Job Start Date Job End Date retired Not on file Not on file Not on file Last Filed Vital Signs Vital Sign Reading Time Taken Comments Blood Pressure 102/54 07/21/2024 9:41 AM CDT Pulse 58 07/21/2024 9:41 AM CDT Temperature 36.2 C (97.2 F) 06/09/2021 8:45 AM CDT Respiratory Rate 30 06/09/2021 9:20 AM CDT Oxygen Saturation 96% 07/21/2024 9:41 AM CDT Inhaled Oxygen Concentration - - Weight 69.4 kg (153 lb) 06/09/2021 6:24 AM CDT Height 167.6 cm (5' 6) 06/09/2021 6:24 AM CDT Body Mass Index 24.69 06/09/2021 6:24 AM CDT Plan of Treatment Health Maintenance Due Date Last Done Comments ANNUAL REVIEW OF HM ORDERS 1945 DEXA 1945 DIABETES SCREENING 1945 LIPID 1945 HEPATITIS C SCREENING 1963 PNEUMOCOCCAL VACCINE 50+ YEARS (1 of 1 - PCV) 1995 MEDICARE ANNUAL WELLNESS VISIT 2010 FALL RISK ASSESSMENT 03/06/2019 03/06/2018 RSV VACCINE (1 - 1-dose 75+ series) 2020 PHQ-2 (once per calendar year) 2024 COVID-19 VACCINE ( season) 2025 11/16/2024, 10/11/2023, 11/01/2022, Additional history exists INFLUENZA VACCINE (#1) 2025 , 09/28/2023, 09/12/2022, Additional history exists ADVANCE CARE PLANNING 07/03/2026 07/03/2021, 021 DTAP/TDAP/TD VACCINE (3 - Td or Tdap) 07/08/2033 07/08/2023, 08/26/2013 MAMMO SCREENING Discontinued 04/09/2014, 06/19, 03/24/2002 ZOSTER VACCINE Completed 05/11/2019, 02/17, 10/29/2012 HPV VACCINE (No Doses Required) Completed MENINGITIS VACCINE Aged Out No longer eligible based on patient's age to complete this topic Medical Devices Explanted Type Area Sales Apprentice Device Identifier Shelf Expiration Date Model / Serial / Lot Catheter-2023 Implanted:01/2024 by Vince Lainez MD (Quantity not on file) Explanted:01/2024 by Vince Lainez MD (Quantity not on file) Catheter [employer] [id number] 04/17/2025 / / [id number] Stent Ureteral Polaris Ultra [id number] Implanted:Qty : 1 on 03/14/2021 by Yanick Luong MD at [facility] Explanted:Qty : 1 on 06/09/2021 by Yanick Luong MD at [facility] Stent Left: Ureter [employer] 01/26/2024 [id number] / / [id number] Procedures Procedure Name Priority Date/Time Associated Diagnosis Comments MA DIAGNOSTIC DIGITAL LEFT Routine 04/09/2014 9:05 AM CDT Breast pain from Last 3 Months or Most Recently Relevant to Health Maintenance Results * MA Diagnostic Digital Left (04/09/2014 9:05 AM CDT) Anatomical Region Laterality Modality Breast Left Mammography Impressions 04/09/2014 11:46 AM CDT IMPRESSION: BI-RADS CATEGORY: 1 - NEGATIVE. No evidence of malignancy and no specific finding to correspond with the area of left breast pain. Results were discussed with the patient during her appointment. Clinical followup is recommended. RECOMMENDED FOLLOW-UP: Clinical Follow-up. KELLEE ARRIAGA MD Narrative 04/09/2014 11:46 AM CDT MA DIAGNOSTIC DIGITAL LEFT with CAD, US BREAST LEFT - 04/09/2014 HISTORY: Focal left breast tenderness. COMPARISON: Screening mammograms 07/10/2013, 07/09/2012, 07/04/2011, 06/28/2010. FINDINGS: Standard diagnostic views of the left breast were obtained. BB was placed to denote the area of pain; no associated mammographic abnormality is evident. The pattern of heterogeneously dense glandular tissue in the left breast is stable in comparison with previous exams. No mammographic evidence of malignancy. The area of pain was further evaluated with ultrasound. This shows normal dense glandular tissue without suspicious cystic or solid lesion. Kiana Novak MD IMG MAMMOGRAPHY ORDERABLES F inal Result from Last 3 Months or Most Recently Relevant to Health Maintenance Insurance * Guarantor: Mine Mcgraw Account Type Relation to Patient Date of Phone Billing Address Personal/Family [address] [place] [address] MEDICARE [facility] [place] MEDICARE [facility] * Guarantor: Mine Mcgraw Account Type Relation to Patient Date of Phone Billing Address Personal/Family [address] [place] [address] MEDICARE [facility] MEDICARE SUPPLEMENT Advance Directives For more information, please contact: [phone] Documents on File Type Date Recorded Patient Runner On Expl anation Advance Directives and Living Will 07/03/2021 Health Care Directiv e 10/20/2015 Healthcare Agents on File Name Relationship Healthcare Agent Relationshi p Communication Mine Mcgraw Spouse Health Care Agent Jose Enrique Mcgraw Son Co-First Alterna te Health Care Agent Onelia Mcgraw Daughter Co-First Alterna te Health Care Agent Care Teams Interventional Physiatrist Relationship Specialty Start Date End Date Rosalee Herron PA-C [facility] [address] [facility] [place] [address] PCP - General 03/06/18 Toni Pang MD [address] [address] Assigned Heart and Vascular Surgical Provider 04/09/25
--- OUTSIDE RECORDS SUMMARY | 2025-07-17 16:56 | XMS_ITS | Clinical Summary ---
Author Organization [facility] Address [address] [place] [address] Care Team Providers Care Estate Tax Examiner Name Role Phone Aashish Arriaga MD Unavailable [phone] Rosalee HerronC Primary Care Provider [phone] Allergies No known active allergies Medications FOSAMAX 70 MG TAB take 1 tablet (70mg) by oral route once weekly in the morning, at least 30 minutes before the first food, beverage, or medication of the day 0 Active meclizine (ANTIVERT) 25 mg tablet meclizine 25 mg tablet TAKE 1 TABLET BY MOUTH THREE TIMES DAILY NEEDED Active phenazopyridine (PYRIDIUM) 200 mg tablet 1 Active famotidine (PEPCID) 20 mg tablet 2 Active cholecalciferol (VITAMIN D3) 1,000 unit tablet Take 1,000 units by mouth. Active calcium carbonate-vitam in D3, 600 mg-400 unit, 600 mg-10 mcg (400 unit) tablet Take 1 Tablet by mouth. Active atorvastatin calcium (LIPITOR ORAL) atorvastatin Ac tive aspirin (ECOTRIN) 81 mg enteric coated tablet once daily. 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 Gender Identity Not on file Sexual Orientation Not on file Obstetrics History Last Filed Vital Signs Vital Sign Reading Time Taken Comments Blood Pressure 170/73 03/19/2022 11:05 AM CDT Pulse 70 03/19/2022 11:05 AM CDT Temperature 36.6 C (97.8 F) 02/18/2022 5:01 PM CDT Respiratory Rate 18 02/18/2022 5:01 PM CDT Oxygen Saturation 99% 03/19/2022 11:05 AM CDT Inhaled Oxygen Concentration - - Weight 68 kg (150 lb) 02/18/2022 5:01 PM CDT Height 165.1 cm (5' 5) 02/18/2022 5:01 PM CDT Body Mass Index 24.96 02/18/2022 5:01 PM CDT Plan of Treatment Health Maintenance Due Date Last Done Comments Tetanus booster 1956 Depression screening for age 12+ 1957 Hepatitis C screening for ag e 18-79 1963 Pneumococcal series for age 50+ (1 of 1 - PCV) 1995 Zoster (shingles) series for age 50+ (1 of 2) 1995 DEXA/DXA scan for age 65+ 2010 Medicare Wellness for age 65+ 2010 RSV vaccine for adults or (1 - 1-dose 75+ series) 2020 BMI (ht and wt on same day) for age 18+ 02/18/2023 02/18/2022, 08/21/2021 COVID-19 vaccine series (2 - season) 2024 08/22/2021 Influenza Vaccine (#1) 2025 Hepatitis B series for 19+ Aged Out N o longer eligible based on patient's age to complete this topic Insurance MEDICARE [place] ONLY [facility] Advance Directives * Full Code (Latest Code Status on File) Date Activated Date Inactivated Comments 10/02/2006 9:52 AM 10/02/2006 3:22 PM Care Teams Estate Tax Examiner Relationship Specialty Start Date End Date Rosalee Herron PA-C [address] [place] [address] PCP - General Physician Spudder 08/21/21 Aashish Arriaga MD [address] [place] [address] 07/24/11
[2025-07-17 16:57] VITALS: BP 183/72; PULSE 68; RESP 18; TEMP 37; O2SAT 94; BMI 24.1
--- NOTE | 2025-07-17 17:22 | ED.WOUNDLAC ---
HPI - Wound/Laceration General Chief Complaint: Laceration/Wound Stated Complaint: Right ankle cut Time Seen by Provider: 07/17/25 16:56 History of Present Illness HPI narrative: This 79-year-old female has a small laceration over the lateral aspect of her right ankle that occurred about 2 hours prior to arrival. She accidentally dropped a pruning heriberto that caused a small laceration in this area. She comes in now because this wound continues to bleed. She does take an aspirin daily but not any other anticoagulants. Related Data Home Medications ?Medication ?Instructions ?Recorded ?Confirmed aspirin 81 mg chewable tablet 1 tab PO DAILY 08/03/22 07/17/25 omega-3 fatty acids 1,000 mg 1,000 mg PO QDAY 08/03/22 07/17/25 capsule calcium 600 mg (as cap PO 02/04/24 07/01/25 carbonate)-vitamin D3 12.5 mcg (500 unit) capsule (Calcium with Vit D3) Previous Rx's ?Medication ?Instructions ?Recorded alprazolam 0.5 mg tablet 0.5 mg PO .Bid-Prn PRN anxiety #30 02/04/24 tabs meclizine 25 mg tablet 25 mg PO BID PRN for dizziness 04/09/24 #270 tabs alendronate 70 mg tablet 70 mg PO QWEEK #12 tabs 07/15/24 amlodipine 2.5 mg tablet 2.5 mg PO QHS #90 tabs 11/02/24 celecoxib 100 mg capsule 100 mg PO BID #180 caps 05/18/25 atorvastatin 10 mg tablet 10 mg PO .Bedtime #90 tabs 07/13/25 Allergies Allergy/AdvReac Type Severity Reaction Status Date / Time No Known Drug Allergies Allergy Verified 07/17/25 17:05 Review of Systems Status of ROS: Reports: 10 or more systems reviewed and unremarkable except as noted in History and below Narrative: Constitutional: No fevers, no weight gain or loss. Eyes: No discharge. No vision changes. HENT: No congestion, no sore throat, no ear pain. Cardiovascular: No chest pain, no palpitations. Respiratory: No shortness of breath, no wheezes, no cough. Gastrointestinal: No abdominal pain, no vomiting, no diarrhea. Genitourinary: No dysuria, no hematuria. Musculoskeletal: Normal range of motion. Skin: No rashes, no pruritis. Neurological: No dizziness, weakness, sensory change, speech change. Endo/Heme/Allergies: No bruising or bleeding. No polydipsia. Pysch: no suicidality, no anxiety, no insomnia. All other systems reviewed and are negative. [facility] Medical History (Updated 07/17/25 @ 17:24 by Jose Reddy MD) UTI (urinary tract infection) ?N39.0 - Urinary tract infection, site not specified (ICD-10) Carpal tunnel syndrome, right ?G56.01 - Carpal tunnel syndrome, right upper limb (ICD-10) Cyst, kidney, acquired ?N28.1 - Cyst of kidney, acquired (ICD-10) Diverticulitis ?K57.92 - Diverticulitis of intestine, part unspecified, without perforation or abscess without bleeding (ICD-10) Surgical History (Updated 05/13/25 @ 14:36 by Rosalee Herron PA-C) History of carpal tunnel surgery of right wrist (04/28/25) ?Z98.890 - Other specified postprocedural states (ICD-10) H/O uvulectomy ?Z90.89 - Acquired absence of other organs (ICD-10) History of ureter stent History of tubal ligation (08/03/11) ?Z98.51 - Tubal ligation status (ICD-10) History of sinus surgery (08/03/11) ?Z98.890 - Other specified postprocedural states (ICD-10) History of right cataract extraction ?Z98.41 - Cataract extraction status, right eye (ICD-10) History of left cataract extraction ?Z98.42 - Cataract extraction status, left eye (ICD-10) History of laser assisted in situ keratomileusis (08/03/11) ?Z98.890 - Other specified postprocedural states (ICD-10) History of laparoscopic cholecystectomy ?Z90.49 - Acquired absence of other specified parts of digestive tract (ICD-10) History of hysterectomy (08/03/11) ?Z90.710 - Acquired absence of both cervix and uterus (ICD-10) History of cataract extraction with lens replacement History of blepharoplasty ?Z98.890 - Other specified postprocedural states (ICD-10) History of appendectomy (08/03/11) ?Z90.49 - Acquired absence of other specified parts of digestive tract (ICD-10) Social History (Updated 08/02/22 @ 14:27 by Magali Barboza ~ PSR) Narrative: Non-smoker Smoking Status: Never smoker Exam Narrative: Exam Narrative: Constitutional: Well-developed, well-nourished, no acute distress. HEENT: Normocephalic, atraumatic. Neck: Normal range of motion. Nontender. Supple. Heart: Regular. No murmurs. Normal rate. Intact distal pulses. Lungs: Clear to auscultation. No chest discomfort. No wheezes, rhonchi, or rales. Abdomen: Normal bowel sounds. Nontender. No rebound tenderness. Genitalia: Deferred. Back: No midline tenderness. Normal range of motion. Extremities: Normal range of motion. 1 cm laceration over the lateral malleolus of the right ankle. There is a small amount of persistent bleeding. Skin: Intact. No rash. Warm. No erythema or pallor. Neurologic: No altered sensation. No weakness. Alert and oriented. Psychiatric: No suicidality. No anxiety or depression. No insomnia. Nursing notes and vitals signs are reviewed. Const: Vital Signs, click to edit/add: Vital Signs - 24 hr 07/17/25 16:57 Temperature 98.6 F Pulse Rate [Right Pulse Oximeter] 68 Respiratory Rate 18 Blood Pressure [Ri ght Upper Arm] 183/72 H Pulse Oximetry 94 Oxygen Delivery Me thod Room Air Course Vital Signs Vital signs: Initial Vital Signs Temperature 98.6 F 07/17/25 16:57 Temperature Source Temporal Artery Scan 07/17/25 16:57 Pulse Rate 68 07/17/25 16:57 Pulse Rhythm Regular 07/17/25 16:57 Pulse Strength 3+ Normal 07/17/25 16:57 Respiratory Rate 18 07/17/25 16:57 Blood Pressure 183/72 H 07/17/25 16:57 Blood Pressure Mean 109 H 07/17/25 16:57 Blood Pressure Position Sitting 07/17/25 16:57 Pulse Oximetry 94 07/17/25 16:57 Oxygen Delivery Method Room Air 07/17/25 16:57 Vital Signs Temperature 98.6 F 07/17/25 16:57 Pulse Rate 68 07/17/25 16:57 Respiratory Rate 18 07/17/25 16:57 Blood Pressure 183/72 H 07/17/25 16:57 Pulse Oximetry 94 07/17/25 16:57 Oxygen Delivery Method Room Air 07/17/25 16:57 Temperature 98.6 F 07/17/25 16:57 Pulse Rate 68 07/17/25 16:57 Respiratory Rate 18 07/17/25 16:57 Blood Pressure 183/72 H 07/17/25 16:57 Pulse Oximetry 94 07/17/25 16:57 Oxygen Delivery Method Room Air 07/17/25 16:57 MDM - Wound/Laceration MDM Narrative Medical decision making narrative: This patient has a small laceration on her right ankle that would benefit from suture repair. After anesthesia with 1% lidocaine I did place 2 sutures using 5.0 Ethilon suture. This approximated the wound edges and stopped any ongoing bleeding. Instructions regarding wound care were given including the need for suture removal in 7-10 days. Discharge Plan Discharge Clinical Impression: Laceration Patient Disposition: Home, Self-Care Condition: Improved Additional Instructions: Keep wound clean and dry. Follow-up with urgent care or clinic in 7-10 days for suture removal. Return if worsening. Prescriptions: No Action aspirin 81 mg tablet,chewable 1 tab PO DAILY omega-3 fatty acids 1,000 mg capsule 1,000 mg PO QDAY calcium carbonate-vitamin D3 [Calcium 600 with Vitamin D3] 600 mg-12.5 mcg (500 unit) capsule PO alprazolam 0.5 mg tablet 0.5 mg PO .Bid-Prn PRN (Reason: anxiety) Qty: 30 0RF alendronate 70 mg tablet 70 mg PO QWEEK Qty: 12 3RF meclizine 25 mg tablet 25 mg PO BID PRN (Reason: for dizziness) Qty: 270 3RF amlodipine 2.5 mg tablet 2.5 mg PO QHS Qty: 90 3RF celecoxib 100 mg capsule 100 mg PO BID Qty: 180 0RF atorvastatin 10 mg tablet 10 mg PO .Bedtime Qty: 90 0RF Follow Up/Referrals: Rosalee Herron PA-C [Primary Care Provider, Family Practice] Stand Alone Forms: [facility] Info Instructions
== END 2025-07-17 18:07 | disposition home or self-care (01) ==
LOC: ED 17:49
PROVIDERS: Emergency Provider Emergency Medicine Emergency Medical Services; PCP Physician Assistant Medical
DX: S91.011A Laceration without foreign body, right ankle, initial encounter (principal); W26.8XXA Contact with other sharp object(s), not elsewhere classified, initial encounter
CPT/HCPCS: 12001; 99283; 99284

== ENCOUNTER 2025-08-10 08:51 | Outpatient (CLI) | payer MEDICARE, BC, SELFPAY | END 2025-08-10 08:52 | disposition home or self-care (01) | PROVIDERS: PCP Physician Assistant Medical; Visit Provider Physician Assistant Medical | DX: I10 Essential (primary) hypertension (principal); E78.2 Mixed hyperlipidemia | CPT/HCPCS: 80053; 80061; 84443 ==

== ENCOUNTER 2025-09-16 09:51 | Outpatient (CLI) | payer MEDICARE, BC, SELFPAY ==
--- NOTE | 2025-09-16 10:15 | CRLHL7_ITS ---
For Patients: As a result of the Century Cures Act, medical imaging exams and procedure reports are released immediately into your electronic medical record. You may view this report before your referring provider. If you have questions, please contact your health care provider. INDICATION: BILATERAL SCREENING MAMMOGRAM, ASYMPTOMATIC 80 Y/O FEMALE COMPARISON: 09/07/2024, 09/04/2023, 08/31/2022 TECHNIQUE: Digital mammogram in CC and MLO projections including computer-aided detection (CAD) and tomosynthesis. BREAST COMPOSITION: The breasts are heterogeneously dense, which may obscure small masses. FINDINGS: No suspicious findings. ASSESSMENT: BI-RADS 2 Benign RECOMMENDATION: Annual screening mammogram. A lay language report of this examination will be provided to the patient. Dictated by: Ziyad Ureña MD @ 09/16/2025 11:07:33 (Electronically Signed)
== END 2025-09-16 09:52 | disposition home or self-care (01) ==
LOC: MAMMO 09:52
PROVIDERS: PCP Physician Assistant Medical; Visit Provider Physician Assistant Medical
DX: Z12.31 Encounter for screening mammogram for malignant neoplasm of breast (principal); R92.333 Mammographic heterogeneous density, bilateral breasts
CPT/HCPCS: 77063; 77067